=== PATIENT | female | born 2005 | race Caucasian/White ===

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

== ENCOUNTER 2025-09-08 15:32 | Outpatient (CLI) | payer OTHER, SELFPAY ==
[2025-09-08 17:03] LABS: Free T4 Free Thyroxine* 0.97 ng/dL (0.70-1.85)
== END 2025-09-08 15:33 | disposition home or self-care (01) ==
LOC: NPINS 15:33
PROVIDERS: PCP Pediatrics; Referring Provider Psychiatry & Neurology Psychiatry; Visit Provider Obstetrics & Gynecology
DX: F33.1 Major depressive disorder, recurrent, moderate (principal); F64.9 Gender identity disorder, unspecified; Z11.3 Encounter for screening for infections with a predominantly sexual mode of transmission; Z79.899 Other long term (current) drug therapy; Z13.9 Encounter for screening, unspecified; Z11.51 Encounter for screening for human papillomavirus (HPV)
CPT/HCPCS: 84439; 84443

== ENCOUNTER 2025-09-08 15:41 | Outpatient (CLI) | payer OTHER, SELFPAY | END 2025-09-08 15:42 | disposition home or self-care (01) | LOC: NFLDREF 09-13 07:38 | PROVIDERS: PCP Pediatrics; Referring Provider Pediatrics; Visit Provider Obstetrics & Gynecology | DX: N89.8 Other specified noninflammatory disorders of vagina (principal); F64.9 Gender identity disorder, unspecified; Z11.3 Encounter for screening for infections with a predominantly sexual mode of transmission; Z79.899 Other long term (current) drug therapy; Z13.9 Encounter for screening, unspecified; Z11.51 Encounter for screening for human papillomavirus (HPV) | CPT/HCPCS: 86703; 86706; 86780; 86803; 87340; 87491; 87591 ==